=== PATIENT | male | born 1940 | race African-American/Black ===

== ENCOUNTER 2017-01-06 11:39 | Emergency (ER) | payer MEDICARE, MEDICAID ==
[~2017-01-06] VITALS: Ht 195.6 cm; Wt 102.0 kg
[2017-01-06] MEDS ORDERED: MORPHINE SULFATE 4 MG/ML CPJ (NOT FOR IM USE) IV STA (12:31)
[2017-01-06] MEDS ORDERED: ONDANSETRON HCL 4MG/2ML VIAL IV STA (12:31)
[2017-01-06] MEDS ORDERED: SODIUM CHLORIDE 0.9% 1,000 ML IV ONE (12:31)
[2017-01-06 13:05] LABS: EOSINOPHILS % 0.3 % (0.0-5.0); HEMATOCRIT. 40.5 % (42.0-52.0); HEMOGLOBIN. 13.7 g/dL (14.0-18.0); LYMPHOCYTES % 13.2 % (20.0-50.0); MEAN CORPUSCULAR HEMOGLOBIN 31.8 pg (28.0-32.0); MEAN CORPUSCULAR VOLUME 93.8 fL (80.0-94.0); MEAN PLATELET VOLUME 8.2 fl (7.4-10.4); MONOCYTES % 5.1 % (2.0-8.0); NEUTROPHILS % 80.4 % (40.0-76.0); PLATELET 241 x1000/uL (130-400); RED BLOOD CELL COUNT 4.32 mill/uL (4.7-6.1); RED CELL DISTRIBUTION WIDTH 13.1 % (11.6-14.6)
[2017-01-06 13:23] LABS: CARBON DIOXIDE 26 mEq/L (21-32); CHLORIDE 105 mEq/L (98-107); TROPONIN I < 0.02 ng/mL (0.00-0.04)
[2017-01-06 13:25] LABS: PROTHROMBIN TIME 10.6 sec (9.4-11.6)
[2017-01-06] MEDS ORDERED: SODIUM CHLORIDE 0.9% 1000ML BAG (SEPSIS BOLUS) IV ONE (13:45)
[2017-01-06] MEDS ORDERED: IOHEXOL-300 100 ML BOTTLE ONE (14:43)
[2017-01-06] MEDS ORDERED: MORPHINE SULFATE 4 MG/ML CPJ (NOT FOR IM USE) IV ONE ×2 (15:30→18:45)
[2017-01-06 16:42] LABS: CLARITY URINE CLEAR (CLEAR); COLOR URINE YELLOW (YELLOW); GLUCOSE URINE NEGATIVE (NEGATIVE); KETONES URINE NEGATIVE (NEGATIVE); LEUKOCYTE ESTERASE URINE NEGATIVE (NEGATIVE); NITRITE URINE NEGATIVE (NEGATIVE); OCCULT BLOOD URINE NEGATIVE (NEGATIVE); PROTEIN URINE NEGATIVE (NEGATIVE); SPECIFIC GRAVITY URINE 1.033 (1.005-1.030)
[2017-01-06 18:22] VITALS: BP 167/99
== END 2017-01-06 18:49 | disposition short-term general hospital (02) ==
LOC: ER 13:59
DX: S32.009A Unspecified fracture of unspecified lumbar vertebra, initial encounter for closed fracture (principal); S22.41XA Multiple fractures of ribs, right side, initial encounter for closed fracture; W19.XXXA Unspecified fall, initial encounter; Y93.01 Activity, walking, marching and hiking; Y92.9 Unspecified place or not applicable; I10 Essential (primary) hypertension; J98.11 Atelectasis; I25.10 Atherosclerotic heart disease of native coronary artery without angina pectoris; F17.200 Nicotine dependence, unspecified, uncomplicated; I51.7 Cardiomegaly; Z95.2 Presence of prosthetic heart valve; K86.1 Other chronic pancreatitis; K57.30 Diverticulosis of large intestine without perforation or abscess without bleeding; K44.9 Diaphragmatic hernia without obstruction or gangrene; Z95.0 Presence of cardiac pacemaker; Z95.1 Presence of aortocoronary bypass graft; R10.9 Unspecified abdominal pain
CPT/HCPCS: 36415; 71010; 71260; 74177; 80053; 81003; 83605; 83690; 84484; 85025; 85610; 86850; 86900; 86901; 87040; 87086; 93005; 96361; 96374; 96375; 96376; 99291; J2270; J2405; J7030; Q9967

== ENCOUNTER 2017-12-09 10:21 | Inpatient (IN) | payer MEDICARE, MEDICAID ==
[~2017-12-09] VITALS: Ht 193 cm; Wt 102.1 kg
[2017-12-09 12:24] LABS: BASOPHILS % 1.5 % (0.0-2.0); EOSINOPHILS % 1.4 % (0.0-5.0); HEMATOCRIT. 42.2 % (42.0-52.0); HEMOGLOBIN. 13.7 g/dL (14.0-18.0); LYMPHOCYTES % 33.3 % (20.0-50.0); MEAN CORPUSCULAR HEMOGLOBIN 30.7 pg (28.0-32.0); MEAN CORPUSCULAR VOLUME 94.6 fL (80.0-94.0); MEAN PLATELET VOLUME 7.6 fl (7.4-10.4); NEUTROPHILS % 54.8 % (40.0-76.0); PLATELET 243 x1000/uL (130-400); RED BLOOD CELL COUNT 4.46 mill/uL (4.7-6.1); RED CELL DISTRIBUTION WIDTH 12.9 % (11.6-14.6)
[2017-12-09 12:31] LABS: CHLORIDE 104 mEq/L (98-107)
[2017-12-09] MEDS ORDERED: DOCUSATE SODIUM 100MG CAPSULE PO PRN (15:30)
[2017-12-09] MEDS ORDERED: ONDANSETRON HCL 4MG/2ML INJ IV PRN (15:30)
[2017-12-09] MEDS ORDERED: MAGNESIUM/ALUMINUM HYDROXIDE/SIMETHICONE 30ML UDC PO PRN (15:30)
[2017-12-09] MEDS ORDERED: CLONIDINE 0.1MG TABLET PO PRN (15:30)
[2017-12-09] MEDS ORDERED: GUAIFENESIN 200MG/10ML SUGAR FREE UDC PO PRN (15:30)
[2017-12-09] MEDS ORDERED: TRAMADOL 50MG TABLET PO PRN (15:30)
[2017-12-09] MEDS ORDERED: ACETAMINOPHEN 325MG TABLET PO PRN (15:30)
[2017-12-09] MEDS ORDERED: IPRATROPIUM/ALBUTEROL 0.5-3(2.5)MG/3ML NEB INH PRN (15:30)
[2017-12-09] MEDS ORDERED: NITROGLYCERIN 0.4MG TABLET SL SL PRN (15:30)
[2017-12-09] MEDS ORDERED: DIPHENHYDRAMINE 50MG/ML VIAL IV PRN (15:30)
[2017-12-09 16:21] LABS: T4 FREE 1.09 ng/dL (0.76-1.46)
[2017-12-09 16:30] LABS: FOLIC ACID (FOLATE) SERUM 7.4 ng/mL (>5.38)
[2017-12-09 17:45] VITALS: BP 154/88
[2017-12-09] MEDS ORDERED: MORPHINE SULFATE 4 MG/ML CPJ (NOT FOR IM USE) IV PRN (17:45)
[2017-12-09 20:00] VITALS: BP 158/83
[2017-12-09] MEDS ORDERED: ZOLPIDEM TARTRATE 5MG TABLET PO PRN (21:00)
[2017-12-09] MEDS ORDERED: NA PHOS,M-B/NA PHOS,DI-BA ENEMA 118ML PR PRN (21:00)
[2017-12-09] MEDS: ASCORBIC ACID 500 MG TABLET PO SCH (21:04)
[2017-12-09] MEDS: LISINOPRIL 20MG TABLET PO SCH (21:04)
[2017-12-09] MEDS: ENOXAPARIN 30MG/0.3ML SYR SUBCUT SCH (21:05)
[2017-12-09] MEDS: FAMOTIDINE 20MG TABLET PO SCH (21:05)
[2017-12-10] VITALS: BP 145/81
[2017-12-10 01:24] LABS: CREATINE KINASE 149 IU/L (39-308)
[2017-12-10 01:26] LABS: CREATINE KINASE MB FRACTION 1.4 ng/mL (0.5-3.6)
[2017-12-10 04:00] VITALS: BP 138/79
[2017-12-10 08:00] VITALS: BP 143/89
[2017-12-10 08:00] LABS: CREATINE KINASE 152 IU/L (39-308)
[2017-12-10] MEDS ORDERED: PNEUMOCOCCAL 23-VAL P-SAC VAC 0.5 ML IM ONE (08:00)
[2017-12-10 08:04] LABS: CREATINE KINASE MB FRACTION 1.4 ng/mL (0.5-3.6)
[2017-12-10] MEDS: FAMOTIDINE 20MG TABLET PO SCH ×2 (09:56→20:57)
[2017-12-10] MEDS: ZINC SULFATE 220 MG ( 50 ) CAPSULE PO SCH (09:56)
[2017-12-10] MEDS: LISINOPRIL 20MG TABLET PO SCH ×2 (09:56→20:57)
[2017-12-10] MEDS: ENOXAPARIN 30MG/0.3ML SYR SUBCUT SCH ×2 (09:57→20:57)
[2017-12-10] MEDS: ASPIRIN 325MG EC TABLET PO SCH (09:57)
[2017-12-10] MEDS: ASCORBIC ACID 500 MG TABLET PO SCH ×2 (09:57→20:57)
[2017-12-10] MEDS ORDERED: INFLUENZA VIRUS VACCINE(AFLURIA) 0.5ML SYR IM ONE (10:00)
[2017-12-10 12:27] VITALS: BP 124/86
[2017-12-10] MEDS ORDERED: AMLO2.5T45 MT (13:26)
[2017-12-10] MEDS ORDERED: LOSA1TAB40 MT (13:26)
[2017-12-10] MEDS ORDERED: ASPI-1159 MT (13:26)
[2017-12-10] MEDS: AMLODIPINE 2.5MG TABLET PO SCH ×2 (13:30→23:30)
[2017-12-10] MEDS ORDERED: REGADENOSON 0.4 MG/5 ML IV ONE (13:30)
[2017-12-10 16:00] VITALS: BP 143/94
[2017-12-10 16:46] LABS: *AMPHETAMINES SCREEN URINE NEGATIVE (NEGATIVE); *BARBITURATES SCREEN URINE NEGATIVE (NEGATIVE); *BENZODIAZEPINES SCREEN URINE NEGATIVE (NEGATIVE); *COCAINE SCREEN URINE NEGATIVE (NEGATIVE); CANNABINOID URINE SCREEN PRESUMTIVE POSITIVE (NEGATIVE)
[2017-12-10 16:47] LABS: METHADONE URINE SCREEN NEGATIVE (NEGATIVE); OPIATES URINE SCREEN NEGATIVE (NEGATIVE); PHENCYCLIDINE URINE SCREEN NEGATIVE (NEGATIVE)
[2017-12-10 20:00] VITALS: BP 119/74
[2017-12-11] VITALS: BP 115/71
[2017-12-11 04:00] VITALS: BP 115/76
[2017-12-11 07:21] LABS: BASOPHILS % 0.6 % (0.0-2.0); EOSINOPHILS % 1.8 % (0.0-5.0); HEMATOCRIT. 47.3 % (42.0-52.0); HEMOGLOBIN. 15.3 g/dL (14.0-18.0); LYMPHOCYTES % 37.4 % (20.0-50.0); MEAN CORPUSCULAR HEMOGLOBIN 30.6 pg (28.0-32.0); MEAN CORPUSCULAR VOLUME 94.9 fL (80.0-94.0); MEAN PLATELET VOLUME 8.5 fl (7.4-10.4); MONOCYTES % 8.7 % (2.0-8.0); NEUTROPHILS % 51.5 % (40.0-76.0); PLATELET 291 x1000/uL (130-400); RED BLOOD CELL COUNT 4.99 mill/uL (4.7-6.1); RED CELL DISTRIBUTION WIDTH 12.7 % (11.6-14.6)
[2017-12-11 07:59] LABS: CHLORIDE 105 mEq/L (98-107)
[2017-12-11 08:00] VITALS: BP 124/84
[2017-12-11 08:18] LABS: LDL CHOLESTEROL 88 mg/dL (5-100)
[2017-12-11 08:20] LABS: CREATINE KINASE 138 IU/L (39-308); CREATINE KINASE MB FRACTION 1.4 ng/mL (0.5-3.6); HDL CHOLESTEROL 64 mg/dL (40-59)
[2017-12-11] MEDS ORDERED: REGADENOSON 0.4 MG/5 ML IV ONE (11:43)
[2017-12-11 12:00] VITALS: BP 146/88
[2017-12-11] MEDS: ZINC SULFATE 220 MG ( 50 ) CAPSULE PO SCH (13:04)
[2017-12-11] MEDS: AMLODIPINE 2.5MG TABLET PO SCH (13:05)
[2017-12-11] MEDS: ASCORBIC ACID 500 MG TABLET PO SCH (13:05)
[2017-12-11] MEDS: FAMOTIDINE 20MG TABLET PO SCH (13:05)
[2017-12-11] MEDS: ASPIRIN 325MG EC TABLET PO SCH (13:05)
[2017-12-11] MEDS: ENOXAPARIN 30MG/0.3ML SYR SUBCUT SCH (13:06)
[2017-12-11] MEDS: LISINOPRIL 20MG TABLET PO SCH (13:08)
== END 2017-12-11 17:05 | disposition home health service (06) | DRG 74 ==
LOC: ER 12:00 → 8WST 13:28 → EDBEDREQ 13:34 → CANRESERV 14:40 → ENRESERV 14:40 → SUPCPDRO 15:16 → ENRESERV 16:51
PROVIDERS: ADMIT Internal Medicine; ATTEND Internal Medicine
DX: G90.8 Other disorders of autonomic nervous system (principal); I10 Essential (primary) hypertension; F17.210 Nicotine dependence, cigarettes, uncomplicated; D64.9 Anemia, unspecified; F12.90 Cannabis use, unspecified, uncomplicated; H53.2 Diplopia; I25.10 Atherosclerotic heart disease of native coronary artery without angina pectoris; Z79.899 Other long term (current) drug therapy; Z95.0 Presence of cardiac pacemaker; Z95.1 Presence of aortocoronary bypass graft; Z23 Encounter for immunization
CPT/HCPCS: 36415; 71045; 78452; 80061; 80305; 82550; 82553; 82607; 82746; 83036; 83540; 83550; 83735; 83880; 84439; 84443; 84484; 85379; 90686; 90732; 93005; 93017; 93306; 93880; 93970; 97161; 97166; 99285; A9500; J1650; J2785

== ENCOUNTER 2021-05-20 07:51 | Emergency (ER) | payer OTHER, MEDICAID ==
[~2021-05-20] VITALS: Ht 188 cm; Wt 75.0 kg
[~2021-05-20 07:51] MED LIST: AMLO2.5T45 MT; ASPI-1497 MT; LOSA1TAB40 MT
[2021-05-20] MEDS ORDERED: VISCOUS LIDOCAINE 2% 15 ML UDC MM STA (08:06)
[2021-05-20] MEDS ORDERED: OXYMETAZOLINE HCL NASAL SPRAY 15ML BOTHNSTRLS STA (08:13)
[2021-05-20] MEDS ORDERED: SILVER NITRATE APPLICATOR STICK TOP ONE (08:15)
[2021-05-20 08:44] LABS: BASOPHILS % 1.3 % (0.0-2.0); EOSINOPHILS % 2.2 % (0.0-5.0); HEMATOCRIT. 38.3 % (42.0-52.0); HEMOGLOBIN. 12.4 g/dL (14.0-18.0); MEAN CORPUSCULAR HEMOGLOBIN 29.9 pg (28.0-32.0); MEAN CORPUSCULAR VOLUME 92.4 fL (80.0-94.0); MEAN PLATELET VOLUME 7.7 fl (7.4-10.4); MONOCYTES % 7.7 % (2.0-8.0); NEUTROPHILS % 65.8 % (40.0-76.0); PLATELET 210 x1000/uL (130-400); RED BLOOD CELL COUNT 4.15 mill/uL (4.7-6.1); RED CELL DISTRIBUTION WIDTH 13.3 % (11.6-14.6)
[2021-05-20 08:51] LABS: CHLORIDE 112 mEq/L (98-107)
[2021-05-20 08:55] LABS: PARTIAL THROMBOPLASTIN TIME 27.4 sec (23.4-31.0); PROTHROMBIN TIME 10.8 sec (9.6-11.0)
[2021-05-20 09:58] VITALS: BP 142/75
== END 2021-05-20 10:00 | disposition home or self-care (01) ==
LOC: ER 07:51
DX: R04.0 Epistaxis (principal); I10 Essential (primary) hypertension; I25.10 Atherosclerotic heart disease of native coronary artery without angina pectoris; Z95.1 Presence of aortocoronary bypass graft; Z95.0 Presence of cardiac pacemaker; Z79.82 Long term (current) use of aspirin
CPT/HCPCS: 30901; 36415; 80048; 85025; 86850; 86900; 99283

== ENCOUNTER 2021-05-20 10:14 | Emergency (ER) | payer OTHER, MEDICAID ==
[~2021-05-20] VITALS: Ht 195.6 cm; Wt 87.0 kg
[2021-05-20 12:53] VITALS: BP 127/85
== END 2021-05-20 12:54 | disposition home or self-care (01) ==
LOC: ER 12:01
DX: R04.0 Epistaxis (principal); I10 Essential (primary) hypertension; I25.10 Atherosclerotic heart disease of native coronary artery without angina pectoris; Z95.1 Presence of aortocoronary bypass graft; Z95.0 Presence of cardiac pacemaker; Z79.82 Long term (current) use of aspirin
CPT/HCPCS: 99282

== ENCOUNTER 2022-04-15 00:43 | Inpatient (IN) | payer OTHER, MEDICAID ==
[~2022-04-15] VITALS: Ht 195.6 cm; Wt 87.3 kg
[2022-04-15] MEDS ORDERED: ONDANSETRON HCL 4MG/2ML INJ IV STA (01:11)
[2022-04-15] MEDS ORDERED: FUROSEMIDE 40MG/4ML VIAL IV ONE (01:15)
[2022-04-15] MEDS ORDERED: MIDAZOLAM HCL 100 MG in SODIUM CHLORIDE 0.9% 100 ML IV PRN ×2 (01:45→02:45)
[2022-04-15 01:53] LABS: BASOPHILS % 0.8 % (0.0-2.0); EOSINOPHILS % 1.4 % (0.0-5.0); HEMATOCRIT. 34.6 % (42.0-52.0); HEMOGLOBIN. 11.1 g/dL (14.0-18.0); LYMPHOCYTES % 17.8 % (20.0-50.0); MEAN CORPUSCULAR HEMOGLOBIN 30.3 pg (28.0-32.0); MEAN CORPUSCULAR VOLUME 94.1 fL (80.0-94.0); PLATELET 173 x1000/uL (130-400); RED BLOOD CELL COUNT 3.67 mill/uL (4.7-6.1); RED CELL DISTRIBUTION WIDTH 13.7 % (11.6-14.6)
[2022-04-15 02:04] LABS: CHLORIDE 110 mEq/L (98-107)
[2022-04-15] MEDS ORDERED: IPRATROPIUM/ALBUTEROL 0.5-3(2.5)MG/3ML NEB HHN PRN ×2 (07:45→10:00)
[2022-04-15] MEDS ORDERED: CLONIDINE 0.1MG TABLET PO PRN (10:00)
[2022-04-15] MEDS ORDERED: DIPHENHYDRAMINE 50MG/ML VIAL IV PRN (10:00)
[2022-04-15] MEDS ORDERED: ACETAMINOPHEN 325MG TABLET PO PRN (10:00)
[2022-04-15] MEDS: FUROSEMIDE 40MG/4ML VIAL IV SCH ×2 (10:00→17:00)
[2022-04-15] MEDS ORDERED: ONDANSETRON HCL 4MG/2ML INJ IV PRN (10:00)
[2022-04-15] MEDS: ASPIRIN 81MG TABLET PO SCH (12:54)
[2022-04-15] MEDS: ENOXAPARIN 40MG/0.4ML SYR SUBCUT SCH (14:28)
[2022-04-15] MEDS: IPRATROPIUM/ALBUTEROL 0.5-3(2.5)MG/3ML NEB HHN SCH (20:07)
[2022-04-15] MEDS: ATORVASTATIN CALCIUM 20MG TABLET PO SCH (21:36)
[2022-04-16] MEDS: IPRATROPIUM/ALBUTEROL 0.5-3(2.5)MG/3ML NEB HHN SCH ×2 (01:44→09:15)
[2022-04-16 05:19] LABS: BASOPHILS % 1.3 % (0.0-2.0); EOSINOPHILS % 0.7 % (0.0-5.0); HEMATOCRIT. 39.1 % (42.0-52.0); HEMOGLOBIN. 12.9 g/dL (14.0-18.0); LYMPHOCYTES % 20.2 % (20.0-50.0); MEAN CORPUSCULAR HEMOGLOBIN 30.5 pg (28.0-32.0); MEAN CORPUSCULAR VOLUME 92.5 fL (80.0-94.0); MEAN PLATELET VOLUME 8.5 fl (7.4-10.4); MONOCYTES % 8.2 % (2.0-8.0); NEUTROPHILS % 69.6 % (40.0-76.0); PLATELET 207 x1000/uL (130-400); RED BLOOD CELL COUNT 4.23 mill/uL (4.7-6.1); RED CELL DISTRIBUTION WIDTH 13.5 % (11.6-14.6)
[2022-04-16 05:26] LABS: CHLORIDE 104 mEq/L (98-107)
[2022-04-16] MEDS: ASPIRIN 81MG TABLET PO SCH (10:07)
[2022-04-16] MEDS: FUROSEMIDE 40MG/4ML VIAL IV SCH (10:07)
[2022-04-16] MEDS ORDERED: IPRATROPIUM BROMIDE (0.02%) 0.5MG/2.5ML NEB HHN PRN (11:00)
[2022-04-16] MEDS ORDERED: ALBUTEROL (0.083%) 2.5MG/3ML NEB HHN PRN (11:00)
[2022-04-16 11:40] LABS: *AMPHETAMINES SCREEN URINE NEGATIVE (NEGATIVE); *BARBITURATES SCREEN URINE NEGATIVE (NEGATIVE); *BENZODIAZEPINES SCREEN URINE NEGATIVE (NEGATIVE); *COCAINE SCREEN URINE NEGATIVE (NEGATIVE); CANNABINOID URINE SCREEN PRESUMTIVE POSITIVE (NEGATIVE); METHADONE URINE SCREEN NEGATIVE (NEGATIVE); OPIATES URINE SCREEN NEGATIVE (NEGATIVE); PHENCYCLIDINE URINE SCREEN NEGATIVE (NEGATIVE)
[2022-04-16 12:00] VITALS: BP_SYST 116; BP_SYST 119; BP_DIAS 80; BP_DIAS 81
[2022-04-16] MEDS ORDERED: IPRATROPIUM BROMIDE (0.02%) 0.5MG/2.5ML NEB HHN SCH (12:00)
[2022-04-16] MEDS ORDERED: ALBUTEROL (0.083%) 2.5MG/3ML NEB HHN SCH (12:00)
[2022-04-16] MEDS: ENOXAPARIN 40MG/0.4ML SYR SUBCUT SCH (12:05)
[2022-04-16] MEDS ORDERED: POTASSIUM CHLORIDE 20MEQ/PACKET PO SCH (13:15)
[2022-04-16 14:00] VITALS: BP 120/82
[2022-04-16] MEDS ORDERED: CHOL400D7 PO (14:03)
[2022-04-16] MEDS ORDERED: ATOR40TA70 PO (14:04)
[2022-04-16] MEDS ORDERED: METO-396 PO (14:05)
[2022-04-16] MEDS ORDERED: MELO-105 PO (14:16)
[2022-04-16 15:39] VITALS: BP 114/79
[2022-04-16] MEDS ORDERED: POTASSIUM CHLORIDE 20MEQ/PACKET PO NR (16:00)
[2022-04-16 18:00] VITALS: BP 145/69
[2022-04-16 20:00] VITALS: BP 155/66
[2022-04-16] MEDS: ATORVASTATIN CALCIUM 20MG TABLET PO SCH (20:48)
[2022-04-16 22:00] VITALS: BP 132/63
[2022-04-17] VITALS: BP 112/35
[2022-04-17 02:00] VITALS: BP 128/63
[2022-04-17 04:00] VITALS: BP 125/68
[2022-04-17 06:00] VITALS: BP 136/68
[2022-04-17 06:26] LABS: BASOPHILS % 0.8 % (0.0-2.0); EOSINOPHILS % 1.5 % (0.0-5.0); HEMATOCRIT. 40.6 % (42.0-52.0); HEMOGLOBIN. 13.3 g/dL (14.0-18.0); LYMPHOCYTES % 28.1 % (20.0-50.0); MEAN CORPUSCULAR HEMOGLOBIN 30.3 pg (28.0-32.0); MEAN CORPUSCULAR VOLUME 92.5 fL (80.0-94.0); MEAN PLATELET VOLUME 9.1 fl (7.4-10.4); MONOCYTES % 10.1 % (2.0-8.0); NEUTROPHILS % 59.5 % (40.0-76.0); PLATELET 206 x1000/uL (130-400); RED BLOOD CELL COUNT 4.39 mill/uL (4.7-6.1); RED CELL DISTRIBUTION WIDTH 13.1 % (11.6-14.6)
[2022-04-17 06:46] LABS: CHLORIDE 105 mEq/L (98-107)
[2022-04-17 07:03] LABS: T4 FREE 1.32 ng/dL (0.76-1.46)
[2022-04-17 08:00] VITALS: BP 135/58
[2022-04-17] MEDS ORDERED: FUROSEMIDE 40MG/4ML VIAL IV SCH (09:00)
== END 2022-04-17 14:36 | disposition short-term general hospital (02) | DRG 280 ==
LOC: ER 00:43 → MICUSO 04:46 → EDBEDREQSVC 06:35 → 5EST 04-16 10:56
PROVIDERS: ADMIT Internal Medicine; ATTEND Internal Medicine
PROC: 5A09457 Assistance with Respiratory Ventilation, 24-96 Consecutive Hours, Continuous Positive Airway Pressure (ICD-10-PCS; principal; 2022-04-15)
DX: I11.0 Hypertensive heart disease with heart failure (principal); I21.4 Non-ST elevation (NSTEMI) myocardial infarction; I50.41 Acute combined systolic (congestive) and diastolic (congestive) heart failure; J96.01 Acute respiratory failure with hypoxia; Z20.822 Contact with and (suspected) exposure to COVID-19; I25.5 Ischemic cardiomyopathy; E78.5 Hyperlipidemia, unspecified; D64.9 Anemia, unspecified; F17.210 Nicotine dependence, cigarettes, uncomplicated; I73.9 Peripheral vascular disease, unspecified; F12.90 Cannabis use, unspecified, uncomplicated; I25.10 Atherosclerotic heart disease of native coronary artery without angina pectoris; Z95.0 Presence of cardiac pacemaker; Z95.1 Presence of aortocoronary bypass graft; Z95.3 Presence of xenogenic heart valve
CPT/HCPCS: 36415; 71045; 80048; 80053; 80305; 83735; 83880; 84439; 84443; 84481; 84484; 85025; 87426; 93306; 93970; 94640; 94660; 99291; C9803; J1650; J1940; J2405